=== PATIENT | male | born 1940 | race Caucasian/White ===

== ENCOUNTER → 2017-12-18 | Outpatient (CLI) | payer MEDICARE, BC ==
[~2017-12-18] MED LIST: ACET325 PO; ASPI81CH PO; ASPI81EC PO; AZIT250 PO; CRUTCH3 USE; FISH1000 PO; FLAX PO; HYDACE5 PO; HYDMOR2 PO; L-Lysine500 M1 PO; MELOXICAM PO; MULVITMIND PO; PRAV20 PO; PROM25 PO; QUIN10 PO; RXHYDACE PO; STOOL SOFTENER PO; Synthroid50 MCG PO; VITAMENS; Valtrex1000 MG PO
== END | disposition home or self-care (01) ==
LOC: PLD 08:11 → LAB SHORT 08:11
DX: L57.0 Actinic keratosis (principal)
CPT/HCPCS: 88305

== ENCOUNTER 2018-11-11 05:49 | Inpatient (IN) | payer MEDICARE, BC ==
[~2018-11-11] VITALS: Ht 162.6 cm; Wt 90.3 kg
[~2018-11-11 05:49] MED LIST changes: +FISH OIL 1,0001 EAC1 PO; -FISH1000 PO; +POLY500 PO; +VITAMIN D32000 UNIT PO
--- NOTE | 2018-11-11 06:40 | NUR ---
History, Chart, Medications and Allergies reviewed before start of procedure. Patient confirms NPO status and agrees with scheduled surgery. Patient reports completing Chlorhexadine shower X2 prior to admission to hospital.
--- NOTE | 2018-11-11 07:35 | NUR ---
0727- DR COOPER NOTIFIED OF RED RAISED BUMP TO RIGHT SHOULDER. 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 GLASSES GIVEN TO PATIENT'S .
--- NOTE | 2018-11-11 09:07 | NUR ---
11/11/18 0907 Pearl Eller RASH ON BACK OF RIGHT SHOULDER, SEEN BY SURGEON. RASH IS ON BACK SIDE OF RIGHT SHOULDER. APPROVED BY SURGEON TO GO AHEAD WITH SURGERY. RASH IS APPROX. 4-5CM, RED, RAISED.
--- NOTE | 2018-11-11 12:35 | NUR ---
pt transferred to room on own bed, a/0 x 4, pleasant/cooperative, family with pt. post op vs commenced and stable. pt states to mild discomfort, no n/v.
--- NOTE | 2018-11-11 14:40 | NUR ---
RECENTLY ASSUMED CARE OF PT. PT REPORTS PAIN DOING WELL. DENIES NAUSEA. MOVES FINGERS. ICE ON SHOULDER. PT A/O.
--- NOTE | 2018-11-11 15:05 | NUR ---
THERAPY IN ROOM.
--- NOTE | 2018-11-11 15:40 | NUR ---
OT IN ROOM. FAMILY PRESENT.
[2018-11-12 05:34] LABS: BASOPHILS ABSOLUTE AUTO 0.04 K/mm3 (0.00-0.23); BASOPHILS PERCENT AUTO 0 % (0-2); EOSINOPHILS PERCENT AUTO 0 % (0-6); Hematocrit 38.6 % (37.0-53.0); Hemoglobin 13.2 g/dL (13.5-17.5); IMMATURE GRAN ABSOLUTE AUTO 0.07 K/mm3 (0.00-0.10); IMMATURE GRAN PERCENT AUTO 0 % (0-1); LYMPHOCYTES ABSOLUTE AUTO 1.22 K/mm3 (0.84-5.20); LYMPHOCYTES PERCENT AUTO 6 % (21-46); MONOCYTES ABSOLUTE AUTO 1.82 K/mm3 (0.16-1.47); MONOCYTES PERCENT AUTO 9 % (4-13); Mean Corpuscular HGB 30.3 pg (26.0-34.0); Mean Corpuscular HGB Conc 34.2 g/dL (31.5-36.5); Mean Corpuscular Volume 89 fL (80-100); NEUTROPHILS ABSOLUTE AUTO 17.84 K/mm3 (1.96-9.15); NEUTROPHILS PERCENT AUTO 85 % (41-73); Platelet Count 241 K/mm3 (150-400); RDW Coefficient Variation 12.2 % (11.7-14.2); RDW Standard Deviation 39.7 fL (35.1-46.3); Red Blood Cell Count 4.36 M/mm3 (4.30-5.90); White Blood Cell Count 20.99 K/mm3 (4.00-11.30)
[2018-11-12 05:56] LABS: Anion Gap 8 mmol/L (6-16); Blood Urea Nitrogen 19 mg/dL (8-24); Bun/Creatinine Ratio 17.9 (12.0-20.0); CO2, Blood 26 mmol/L (21-32); Calcium, Blood 8.4 mg/dL (8.5-10.1); Chloride, Blood 102 mmol/L (98-108); Creatinine, Blood 1.06 mg/dL (0.60-1.20); Glomerular Filtration Rate >60 (60-); Glucose, Blood 167 mg/dL (70-99); Magnesium, Blood 1.9 mg/dL (1.6-2.4); Potassium, Blood 4.4 mmol/L (3.5-5.5); Sodium, Blood 136 mmol/L (136-145)
--- NOTE | 2018-11-12 06:22 | NUR ---
AMBULATED IN SCALES AND THEN WAS ABLE TO URINATE 300ML OF CLEAR YELLOW URINE. DENIED PAIN THROUGHOUT SHIFT, ASKING FOR PAIN MEDS WITH HS MEDS DUE TO START OF FLARE UP. GOT OOB AND TO BATHROOM AGAIN DURING SHIFT AND URINATED 650ML CLEAR YELLOW URINE. NO FURTHER CHANGES THROUGHOUT SHIFT. DENIES FURTHER NEEDS AT THIS TIME. SAFETY MEASURES IN PLACE. WILL GIVE HAND OFF TO ONCOMING SHIFT USING SBAR.
[2018-11-12] MEDS ORDERED: ASPI325 PO (10:35)
[2018-11-12] MEDS ORDERED: OXYC5 PO (10:35)
--- NOTE | 2018-11-12 12:08 | NUR ---
DISCHARGE PT D/C'D VIA W/C. DISCHARGE EDUCATION DISCUSSED WITH SPOUSE AND PATIENT. BOTH FEEL COMFORTABLE. SCRIPT GIVEN. DRSGS GIVEN. DISCUSSED SENG SONG.
== END 2018-11-12 11:25 | disposition home or self-care (01) | DRG 483 ==
LOC: SURS 05:49 → PRE IP 07:30 → SURS 12:22
PROVIDERS: ADMIT Orthopaedic Surgery
PROC: 0RRJ00Z Replacement of Right Shoulder Joint with Reverse Ball and Socket Synthetic Substitute, Open Approach (ICD-10-PCS; principal; 2018-11-11 07:30)
DX: M12.811 Other specific arthropathies, not elsewhere classified, right shoulder (principal); I10 Essential (primary) hypertension; E78.5 Hyperlipidemia, unspecified; J44.9 Chronic obstructive pulmonary disease, unspecified; E03.9 Hypothyroidism, unspecified; Z68.34 Body mass index [BMI] 34.0-34.9, adult; Z79.82 Long term (current) use of aspirin; Z79.899 Other long term (current) drug therapy; Z87.891 Personal history of nicotine dependence
CPT/HCPCS: 36415; 73030; 80048; 83735; 85025; 88300; 97110; 97162; 97165; 97530; 97535; C1776; J0171; J0690; J0735; J1100; J1885; J2250; J2370; J2405; J2710; J2795; J3010; J7120

== ENCOUNTER 2019-09-22 09:42 | Day surgery (SDC) | payer MEDICARE, BC ==
[~2019-09-22] VITALS: Ht 162.6 cm; Wt 89.4 kg
[~2019-09-22 09:42] MED LIST changes: +ASPI325 PO; +OXYC5 PO
== END 2019-09-22 11:01 | disposition home or self-care (01) ==
LOC: ORSCSDS 09:42
PROVIDERS: Internal Medicine Gastroenterology
PROC: 0DBL8ZX Excision of Transverse Colon, Via Natural or Artificial Opening Endoscopic, Diagnostic (ICD-10-PCS; principal; 2019-09-22 11:00)
PROC: 0DBM8ZX Excision of Descending Colon, Via Natural or Artificial Opening Endoscopic, Diagnostic (ICD-10-PCS; principal; 2019-09-22 11:00)
DX: Z12.11 Encounter for screening for malignant neoplasm of colon (principal); Z86.010 Personal history of colon polyps; Z80.0 Family history of malignant neoplasm of digestive organs; D12.3 Benign neoplasm of transverse colon; D12.4 Benign neoplasm of descending colon; K57.30 Diverticulosis of large intestine without perforation or abscess without bleeding; K64.8 Other hemorrhoids; I10 Essential (primary) hypertension; E03.9 Hypothyroidism, unspecified; Z79.899 Other long term (current) drug therapy
CPT/HCPCS: 88305; J2704; J7120

== ENCOUNTER 2020-12-22 08:09 | Day surgery (SDC) | payer MEDICARE, BC ==
[~2020-12-22] VITALS: Ht 165.1 cm; Wt 92.7 kg
[~2020-12-22 08:09] MED LIST changes: +Aspir 8181 MG PO; +LEVOTHYROXINE100 MC2 PO
--- NOTE | 2020-12-22 12:00 | NUR ---
12/22/20 Maximo Villarreal PT RESTING ON RECLINER. PT DENIES ANY PAIN OR NAUSEA. PT TOLERATING SNACKS. PT FEELING VERY HOT, POLAR PACK CONTINOUSLY. WILL CONTINUE TO MONITOR.
== END 2020-12-22 13:04 | disposition home or self-care (01) ==
LOC: ORSCSDS 08:09
PROVIDERS: Orthopaedic Surgery
PROC: 0LQ24ZZ Repair Left Shoulder Tendon, Percutaneous Endoscopic Approach (ICD-10-PCS; principal; 2020-12-22 09:30)
PROC: 0RNK4ZZ Release Left Shoulder Joint, Percutaneous Endoscopic Approach (ICD-10-PCS; principal; 2020-12-22 09:30)
DX: M75.122 Complete rotator cuff tear or rupture of left shoulder, not specified as traumatic (principal); M75.22 Bicipital tendinitis, left shoulder; M75.42 Impingement syndrome of left shoulder; I10 Essential (primary) hypertension; E78.5 Hyperlipidemia, unspecified; I25.10 Atherosclerotic heart disease of native coronary artery without angina pectoris; E03.9 Hypothyroidism, unspecified; E66.9 Obesity, unspecified; Z68.34 Body mass index [BMI] 34.0-34.9, adult; Z79.82 Long term (current) use of aspirin; Z79.899 Other long term (current) drug therapy
CPT/HCPCS: C1713; J0171; J0690; J1100; J2250; J2370; J2405; J2704; J3010; J7120

== ENCOUNTER → 2021-04-19 | Outpatient (CLI) | payer MEDICARE, BC | LOC: LAB SHORT 13:39 → LAB 13:39 | DX: D48.5 Neoplasm of uncertain behavior of skin (principal); D22.22 Melanocytic nevi of left ear and external auricular canal | CPT/HCPCS: 88305 ==

== ENCOUNTER 2021-09-05 07:48 | Day surgery (SDC) | payer MEDICARE, BC ==
[~2021-09-05] VITALS: Ht 162.6 cm; Wt 92.2 kg
== END 2021-09-05 09:55 | disposition home or self-care (01) ==
LOC: ORSCSDS 07:48
PROVIDERS: Orthopaedic Surgery
PROC: 01N50ZZ Release Median Nerve, Open Approach (ICD-10-PCS; principal; 2021-09-05 09:00)
DX: G56.02 Carpal tunnel syndrome, left upper limb (principal); I10 Essential (primary) hypertension; E78.5 Hyperlipidemia, unspecified; D75.1 Secondary polycythemia; J44.9 Chronic obstructive pulmonary disease, unspecified; Z79.899 Other long term (current) drug therapy; Z79.82 Long term (current) use of aspirin; E66.9 Obesity, unspecified; Z68.34 Body mass index [BMI] 34.0-34.9, adult; Z87.891 Personal history of nicotine dependence
CPT/HCPCS: J2250; J3010

== ENCOUNTER 2022-12-27 09:20 | Emergency (ER) | payer MEDICARE, BC ==
[~2022-12-27] VITALS: Ht 165.1 cm; Wt 90.7 kg
[2022-12-27 10:37] LABS: BASOPHILS ABSOLUTE AUTO 0.02 K/mm3 (0.00-0.23); BASOPHILS PERCENT AUTO 0 % (0-2); EOSINOPHILS ABSOLUTE AUTO 0.16 K/mm3 (0.00-0.68); EOSINOPHILS PERCENT AUTO 2 % (0-6); Hematocrit 44.9 % (37.0-53.0); Hemoglobin 15.5 g/dL (13.5-17.5); IMMATURE GRAN ABSOLUTE AUTO 0.02 K/mm3 (0.00-0.10); IMMATURE GRAN PERCENT AUTO 0 % (0-1); LYMPHOCYTES ABSOLUTE AUTO 1.93 K/mm3 (0.84-5.20); LYMPHOCYTES PERCENT AUTO 28 % (21-46); MONOCYTES ABSOLUTE AUTO 0.73 K/mm3 (0.16-1.47); MONOCYTES PERCENT AUTO 11 % (4-13); Mean Corpuscular HGB 29.8 pg (26.0-34.0); Mean Corpuscular HGB Conc 34.5 g/dL (31.5-36.5); Mean Corpuscular Volume 86 fL (80-100); Mean Platelet Volume 9.5 fL (9.1-12.4); NEUTROPHILS ABSOLUTE AUTO 4.06 K/mm3 (1.96-9.15); NEUTROPHILS PERCENT AUTO 59 % (41-73); Platelet Count 278 K/mm3 (150-400); RDW Coefficient Variation 12.6 % (11.7-14.2); RDW Standard Deviation 39.6 fL (35.1-46.3); Red Blood Cell Count 5.21 M/mm3 (4.30-5.90); White Blood Cell Count 6.92 K/mm3 (4.00-11.30)
[2022-12-27 11:19] LABS: Albumin, Blood 3.7 g/dL (3.4-5.0); Bilirubin, Total 0.5 mg/dL (0.1-1.0); Bun/Creatinine Ratio 15.1 (12.0-20.0); Creatinine, Blood 0.99 mg/dL (0.60-1.20); Globulin, Blood 3.6 g/dL (2.2-4.0); Potassium, Blood 4.4 mmol/L (3.5-5.5); Total Protein, Blood 7.3 g/dL (6.4-8.2)
== END 2022-12-27 12:22 | disposition home or self-care (01) ==
LOC: ER 09:20
PROVIDERS: Physician Assistant
DX: R40.4 Transient alteration of awareness (principal); I10 Essential (primary) hypertension; E78.5 Hyperlipidemia, unspecified; E66.9 Obesity, unspecified; Z79.899 Other long term (current) drug therapy; Z79.82 Long term (current) use of aspirin; Z79.890 Hormone replacement therapy; Z87.891 Personal history of nicotine dependence
CPT/HCPCS: 36415; 80053; 82947; 85025; 93005; 93010; 99284-25

== ENCOUNTER 2025-05-22 10:50 | Emergency (ER) | payer MEDICARE, BC ==
[~2025-05-22] VITALS: Ht 162.6 cm; Wt 93.0 kg
[~2025-05-22 10:50] MED LIST changes: -KETO10 PO; -OXAYDO5 M1 PO; -TAMS.4ER PO
[2025-05-22 11:46] LABS: BASOPHILS ABSOLUTE AUTO 0.02 K/mm3 (0.00-0.23); BASOPHILS PERCENT AUTO 0 % (0-2); EOSINOPHILS ABSOLUTE AUTO 0.04 K/mm3 (0.00-0.68); EOSINOPHILS PERCENT AUTO 0 % (0-6); Hematocrit 43.3 % (37.0-53.0); Hemoglobin 15.0 g/dL (13.5-17.5); IMMATURE GRAN ABSOLUTE AUTO 0.05 K/mm3 (0.00-0.10); IMMATURE GRAN PERCENT AUTO 0 % (0-1); LYMPHOCYTES ABSOLUTE AUTO 1.19 K/mm3 (0.84-5.20); LYMPHOCYTES PERCENT AUTO 8 % (21-46); MONOCYTES ABSOLUTE AUTO 1.09 K/mm3 (0.16-1.47); MONOCYTES PERCENT AUTO 8 % (4-13); Mean Corpuscular HGB Conc 34.6 g/dL (31.5-36.5); Mean Corpuscular Volume 89 fL (80-100); NEUTROPHILS ABSOLUTE AUTO 12.17 K/mm3 (1.96-9.15); NEUTROPHILS PERCENT AUTO 84 % (41-73); NRBC ABSOLUTE 0.00 K/mm3 (0.00-0.02); NRBC Auto 0.0 /100 WBC (0.0-0.2); Platelet Count 258 K/mm3 (150-400); RDW Coefficient Variation 12.1 % (11.7-14.2); RDW Standard Deviation 39.6 fL (35.1-46.3)
[2025-05-22 12:06] LABS: Alanine Aminotransfer (ALT/SGP 38.0 U/L (12-78); Albumin, Blood 3.8 g/dL (3.4-5.0); Albumin/Globulin Ratio 1.1 (0.8-1.8); Anion Gap 7.0 mmol/L (3-11); Aspartate Aminotrans (AST/SGOT 23.0 U/L (12-37); Bilirubin, Total 0.5 mg/dL (0.1-1.0); Blood Urea Nitrogen 18.0 mg/dL (8-24); CO2, Blood 26.0 mmol/L (21-32); Calcium, Blood 8.6 mg/dL (8.5-10.1); Chloride, Blood 106.0 mmol/L (98-108); Creatinine, Blood 0.87 mg/dL (0.60-1.20); Globulin, Blood 3.5 g/dL (2.2-4.0); Glucose, Blood 173.0 mg/dL (70-99); Potassium, Blood 4.5 mmol/L (3.5-5.5); Sodium, Blood 134.0 mmol/L (136-145); Total Protein, Blood 7.3 g/dL (6.4-8.2)
[2025-05-22 13:43] LABS: Source, Urine Clean Catch
[2025-05-22 13:46] LABS: Bilirubin, Urine Neg (Neg); Color, Urine Yellow (P-Yellow); Glucose Qualitative, Urine Neg (Neg); Ketones, Urine Neg (Neg); Leukocyte Esterase, Urine 2+ (Neg); Protein, Urine 1+ (Neg); Specific Gravity, Urine 1.015 (1.003-1.022); Urobilinogen, Urine NORM (Normal)
[2025-05-22 15:05] VITALS: BP 158/76
[2025-05-22 15:24] LABS: Source, Urine Straight Cath
[2025-05-22 15:29] LABS: Bilirubin, Urine Neg (Neg); Glucose Qualitative, Urine Neg (Neg); Ketones, Urine Neg (Neg); Leukocyte Esterase, Urine Neg (Neg); Protein, Urine 1+ (Neg); Specific Gravity, Urine 1.005 (1.003-1.022); Urobilinogen, Urine NORM (Normal)
[2025-05-22 15:38] LABS: Color, Urine Pale Yellow (P-Yellow)
[2025-05-22 15:39] LABS: White Blood Cells, Urine 0-2 /hpf (0-5)
[2025-05-22] MEDS ORDERED: TAMS.4ER PO (16:40)
[2025-05-22] MEDS ORDERED: KETO10 PO (16:40)
[2025-05-22] MEDS ORDERED: OXAYDO5 M1 PO (16:40)
== END 2025-05-22 17:08 | disposition home or self-care (01) ==
LOC: ER 10:50
PROVIDERS: Physician Assistant; Student in an Organized Health Care Education/Training Program
DX: N13.2 Hydronephrosis with renal and ureteral calculous obstruction (principal); E03.9 Hypothyroidism, unspecified; I10 Essential (primary) hypertension; Z87.891 Personal history of nicotine dependence; Z79.82 Long term (current) use of aspirin; Z79.899 Other long term (current) drug therapy; R31.9 Hematuria, unspecified
CPT/HCPCS: 74177; 80053; 81001; 85025; 87077; 87086; 99284-25; Q9967

== ENCOUNTER → 2025-05-22 | Outpatient (CLI) | payer MEDICARE, BC ==
[~2025-05-22] MED LIST changes: +KETO10 PO; +OXAYDO5 M1 PO; +TAMS.4ER PO
== END ==
LOC: LAB SHORT 10:30 → LAB 10:30
DX: R31.9 Hematuria, unspecified (principal)
CPT/HCPCS: 87077; 87086